=== PATIENT | male | born 1950 | race Caucasian/White ===

== ENCOUNTER 2022-02-01 14:50 | Emergency (ER) | payer MEDICARE, OTHER ==
[2022-02-01] MEDS ORDERED: SODIUM CHLORIDE 0.9% 1,000 ML IV ONE (16:23)
--- NOTE | 2022-02-01 16:23 | ED ---
General Adult HPI - General Chief complaint: Fall Stated complaint: Fall/Weakness Time Seen by Provider: 02/01/22 16:22 Source: patient Mode of arrival: ambulatory Limitations: no limitations - History of Present Illness Initial comments: Graham is a pleasant 71-year-old gentleman who presents the ER today for evaluation of weakness. Patient reports he got up this morning walk to the store and was walking home carrying bags when he began to feel really weak and fell to his knees. Patient denies any recent illness. Patient does have multiple chronic medical conditions however he has not been seen by a physician since the beginning of the COVID-19 pandemic. Patient states he's been off his medications for a number of months. He states he was told previously that he was prediabetic but has never been on medications. - Related Data Previous Rx's Medication Instructions Recorded Lisinopril [Prinivil] 10 mg PO DAILY #30 tab 02/01/22 metFORMIN HCL 500 mg PO BID #60 tablet 02/01/22 Allergies Allergy/AdvReac Type Severity Reaction Status Date / Time No Known Allergies Allergy Verified 02/01/22 20:16 Review of Systems ROS Statement: Those systems with pertinent positive or pertinent negative responses have been documented in the HPI. ROS Other: All systems not noted in ROS Statement are negative. Past Medical History Past Medical History: Hypertension History of Any Multi-Drug Resistant Organisms: None Reported Past Psychological History: No Psychological Hx Reported Smoking Status: Never smoker Past Alcohol Use History: None Reported Past Drug Use History: None Reported General Exam - General Exam Comments Initial Comments: Physical Exam GENERAL: Patient is well-developed and well-nourished. Patient is nontoxic and well-hydrated and is in no distress. HENT: Normocephalic, Atraumatic. EYES: PERRL, EOMI PULMONARY: Unlabored respirations. CARDIOVASCULAR: RRR Warm and well perfused extremities 1+ pitting edema lower extremities ABDOMEN: Non-distended SKIN: No rashes or bruising : Deferred NEUROLOGIC: Alert and oriented Normal speech Normal gait MUSCULOSKELETAL: Moving all extremities with no apparent injury PSYCHIATRIC: No SI/HI Limitations: no limitations Course Vital Signs 02/01/22 02/01/22 02/01/22 15:25 16:21 19:12 Temperature 98.5 F 98.0 F Pulse Rate 96 91 70 Respiratory 20 14 14 Rate Blood Pressure 179/99 163/107 171/102 O2 Sat by Pulse 96 99 99 Oximetry Medical Decision Making - Lab Data Result diagrams: 02/01/22 16:26 02/01/22 16:26 Lab Results 02/01/22 02/01/22 02/01/22 Range/Units 16:26 16:26 19:08 WBC 12.3 H (3.8-10.6) k/uL RBC 5.46 (4.30-5.90) m/uL Hgb 16.2 (13.0-17.5) gm/dL Hct 49.7 (39.0-53.0) % MCV 91.1 (80.0-100.0) fL MCH 29.7 (25.0-35.0) pg MCHC 32.6 (31.0-37.0) g/dL RDW 12.1 (11.5-15.5) % Plt Count 282 (150-450) k/uL MPV 7.7 Neutrophils % 84 % Lymphocytes % 9 % Monocytes % 4 % Eosinophils % 1 % Basophils % 1 % Neutrophils # 10.4 H (1.3-7.7) k/uL Lymphocytes # 1.1 (1.0-4.8) k/uL Monocytes # 0.5 (0-1.0) k/uL Eosinophils # 0.2 (0-0.7) k/uL Basophils # 0.1 (0-0.2) k/uL Sodium 133 L (137-145) mmol/L Potassium 3.4 L (3.5-5.1) mmol/L Chloride 97 L (98-107) mmol/L Carbon Dioxide 23 (22-30) mmol/L Anion Gap 13 mmol/L BUN 10 (9-20) mg/dL Creatinine 0.68 (0.66-1.25) mg/dL Est GFR (CKD-EPI)AfAm >90 (>60 ml/min/1.73 sqM) Est GFR (CKD-EPI)NonAf >90 (>60 ml/min/1.73 sqM) Glucose 424 H (74-99) mg/dL POC Glucose (mg/dL) 370 H (75-99) mg/dL POC Glu Information Management Specialist ID Ayana Hurt Calcium 9.2 (8.4-10.2) mg/dL Magnesium 2.1 (1.6-2.3) mg/dL Total Bilirubin 1.1 (0.2-1.3) mg/dL AST 25 (17-59) U/L ALT 20 (4-49) U/L Alkaline Phosphatase 233 H (38-126) U/L Creatine Kinase 44 L (55-170) U/L Total Protein 7.5 (6.3-8.2) g/dL Albumin 4.3 (3.5-5.0) g/dL Disposition Clinical Impression: Hyperglycemia, HTN (hypertension) Disposition: HOME SELF-CARE Condition: Stable Additional Instructions: Start the metformin and lisinopril to treat your blood sugar and high blood pressure. Call your regular doctor Wednesday for follow up. Prescriptions: metFORMIN HCL 500 mg PO BID #60 tablet Lisinopril [Prinivil] 10 mg PO DAILY #30 tab Is patient prescribed a controlled substance at d/c from ED?: No Referrals: Chavez Manuel MD [Primary Care Provider] - 1-2 days
[2022-02-01 16:24] VITALS: RESP 14
[2022-02-01 16:43] LABS: Basophils # (A) 0.1 k/uL (0-0.2); Basophils % (A) 1 %; Eosinophils # (A) 0.2 k/uL (0-0.7); Eosinophils % (A) 1 %; HCT 49.7 % (39.0-53.0); HGB 16.2 gm/dL (13.0-17.5); Lymphocytes # (A) 1.1 k/uL (1.0-4.8); Lymphocytes % (A) 9 %; MCH 29.7 pg (25.0-35.0); MCHC 32.6 g/dL (31.0-37.0); MCV 91.1 fL (80.0-100.0); Mean Platelet Volume 7.7; Monocytes # (A) 0.5 k/uL (0-1.0); Monocytes % (A) 4 %; Neutrophils # (A) 10.4 k/uL (1.3-7.7); Neutrophils % (A) 84 %; Platelet Count 282 k/uL (150-450); RBC 5.46 m/uL (4.30-5.90); RDW 12.1 % (11.5-15.5); WBC 12.3 k/uL (3.8-10.6)
[2022-02-01 16:55] LABS: ALT 20 U/L (4-49); AST 25 U/L (17-59); African American GFR (CKD) >90 (>60 ml/min/1.73 sqM); Albumin 4.3 g/dL (3.5-5.0); Alkaline Phosphatase 233 U/L (38-126); Anion Gap 13 mmol/L; Blood Urea Nitrogen 10 mg/dL (9-20); Calcium 9.2 mg/dL (8.4-10.2); Carbon Dioxide 23 mmol/L (22-30); Chloride 97 mmol/L (98-107); Creatine Kinase 44 U/L (55-170); Glucose 424 mg/dL (74-99); Magnesium 2.1 mg/dL (1.6-2.3); Non-African American GFR(CKD) >90 (>60 ml/min/1.73 sqM); Potassium 3.4 mmol/L (3.5-5.1); Sodium 133 mmol/L (137-145); Total Bilirubin 1.1 mg/dL (0.2-1.3); Total Protein 7.5 g/dL (6.3-8.2)
[2022-02-01 19:09] LABS: Glucose,Whole Blood 370 mg/dL (75-99)
[2022-02-01 19:13] VITALS: BP 171/102; PULSE 70; TEMP 98
[2022-02-01] MEDS ORDERED: INSULIN REGULAR 100 UNIT/ML VIAL (IM/SQ) SQ ONE ×2 (19:20→20:00)
[2022-02-01 21:19] LABS: Glucose,Whole Blood 331 mg/dL (75-99)
== END 2022-02-01 21:28 | disposition home or self-care (01) ==
LOC: EC 14:50
DX: I10 Essential (primary) hypertension (principal); R73.9 Hyperglycemia, unspecified
CPT/HCPCS: 36415; 80053; 82550; 83735; 85025; 96360; 99284